=== PATIENT | female | born 1965 | race Caucasian/White ===

== ENCOUNTER 2017-08-08 16:14 | Emergency (ER) | payer OTHER ==
[2017-08-08 16:51] VITALS: O2SAT 97
[2017-08-08] MEDS ORDERED: Norflex 60 MG/2 ML IM ONE (16:51)
[2017-08-08] MEDS ORDERED: Norflex 60 MG/2 ML ONE (16:56)
--- NOTE | 2017-08-08 16:56 | ERPHSYRPT ---
- History of Present Illness Time Seen by Provider: 08/08/17 16:51 Source: patient Exam Limitations: no limitations Patient Subjective Stated Complaint: fell down two steps around noon today injuring back and left leg. Triage Nursing Assessment: ambulated to room per self. skin w/d, color normal, resp easy. tender down spine. abrasions noted to left knee and lower leg. leg warm, normal color, good pedal pulse. hx of back injury last may. Physician History: Patient states she tripped over a curb around noon today injuring her back, left knee and ankle. patient complain of paralumbar pain described as constant , localized and tightness. Patient denies any radiculopathy pain. Pains are worse with movement and weight bearing. Pain decreases with sitting still. Patient also with contusion to left knee and ankle. Patient able to move ankle/ knee without discomfort. Patient has taken Motrin for pain. Patient denies any loss of consciousness, headaches, dizziness, neck/chest/abdomen or any other extremities trauma/injuries Occurred: this afternoon (12 noon) Reason for Fall: slipped, tripped, fell from standing pos Injuries/Pain Location: back, lower extremity (L knee/ankle) Loss of Consciousness: no loss of consciousness (get a bed) Quality: throbbing Severity of Pain-Max: moderate Severity of Pain-Current: moderate Modifying Factors: Improves With: immobilization (improves), movement ( worsenslimited normal.) Associated Symptoms (Fall): back pain, extremity injury, muscle spasms, No abdominal pain, No confusion, No chest pain, No dizziness, No headache, No lightheadedness, No nausea, No neck pain, No trouble walking, No vision changes Allergies/Adverse Reactions: codeine Allergy (Verified 08/08/17 16:32) hydrocodone Allergy (Verified 08/08/17 16:32) tramadol Allergy (Verified 08/08/17 16:32) Home Medications: Butalb/Acetaminophen/Caffeine [Sasisy-Fyxuspzw-Yozw 50-500-40] 1 each PO BID [History] Cyclobenzaprine HCl 10 mg [Cyclobenzaprine 10 MG] 10 mg PO BID 08/08/17 [ History] Ibuprofen 800 mg PO BID 08/08/17 [History] Levothyroxine Sodium [Synthroid] 88 mcg PO DAILY 08/08/17 [History] Naproxen 375 mg PO BID 08/08/17 [History] Sertraline HCl 50 mg PO DAILY 08/08/17 [History] Hx Tetanus, Diphtheria Vaccination/Date Given: Yes (2017) Hx Influenza Vaccination/Date Given: No Hx Pneumococcal Vaccination/Date Given: No - Review of Systems Constitutional: No Fever, No Chills Eyes: No Symptoms Ears, Nose, & Throat: No Symptoms Respiratory: No Symptoms, No Cough, No Dyspnea Cardiac: No Symptoms, No Chest Pain, No Edema, No Syncope Abdominal/Gastrointestinal: No Symptoms, No Abdominal Pain, No Nausea, No Vomiting, No Diarrhea Genitourinary Symptoms: No Symptoms, No Dysuria Musculoskeletal: Back Pain, Joint Pain (L knee/ankle), No Neck Pain Skin: Other (Contusion to L knee/ankle are completely clear diomedes will be good), No Rash Neurological: No Dizziness, No Focal Weakness, No Sensory Changes Psychological: No Symptoms Endocrine: No Symptoms Hematologic/Lymphatic: No Symptoms (she will traumatic) Immunological/Allergic: No Symptoms All Other Systems: Reviewed and Negative - Past Medical History Pertinent Past Medical History: Yes ENT History: Cataracts Endocrine Medical History: Hypothyroidism Psycho-Social History: Depression Female Reproductive Disorders: Cervical Cancer Other Medical History: 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 - Past Surgical History Past Surgical History: Yes Gastrointestinal: Appendectomy, Cholecystectomy Musculoskeletal: Orthopedic Surgery Female Surgical History: Tubal Ligation Other Surgical History: right hand - Social History Smoking Status: Never smoker Exposure to second hand smoke: No Drug Use: none Patient Lives Alone: No - Nursing Vital Signs Nursing Vital Signs: Initial Vital Signs Temperature 97.7 F 08/08/17 16:20 Pulse Rate 91 H 08/08/17 16:20 Respiratory Rate 16 08/08/17 16:20 Blood Pressure 129/87 08/08/17 16:20 O2 Sat by Pulse Oximetry 97 08/08/17 16:20 Pain Scale Pain Intensity 10 EKG - [place] Coma Score Best Eye Response (Brett): (4) open spontaneously Best Verbal Response (Brett): (5) oriented Best Motor Response (Brett): (6) obeys commands [place] Total: 15 - Physical Exam General Appearance: no apparent distress, alert Head Injury: no evidence of injury Eye Exam: PERRL/EOMI, No eyes nml inspection ENT Exam: airway nml, No evidence of ENT injury, No dental injury Neck Exam: supple, trachea midline, full range of motion, normal alignment, normal inspection, No tenderness Respiratory/Chest Exam: normal breath sounds, No chest tenderness, No respiratory distress, No crepitus Cardiovascular Exam: normal heart sounds, regular rate/rhythm Gastrointestinal Exam: soft, No tenderness, No distention, No guarding, No ecchymosis Back Exam: normal inspection, vertebral tenderness (paralumbar tenderness/ tightness), decreased range of motion Extremity Exam: normal range of motion, pelvis stable, evidence of injury ( contusion to left knee and medial malleolus of left ankle), No deformities, No pain with movement, No pulse deficit, No pedal edema, No sensory deficit Peripheral Pulses: dorsalis-pedis (R): 2+, dorsalis-pedis (L): 2+ Neurologic Exam: alert, oriented x 3, cooperative, tentmaker II-XII nml as tested, normal mood/affect, sensation nml, No motor deficits Skin Exam: normal color, warm, dry SpO2 Interpretation: normal SpO2: 97 Oxygen Delivery: Room Air - Course Nursing assessment & vital signs reviewed: Yes - Radiology Exams L-Spine X-ray Interpretation: Interpreted by me, No Fracture (DJD) Ordered Tests: Active Orders 24 hr Category Date Time Status LUMBAR LIMITED (2 OR 3 VIEWS) Stat Exams 08/08/17 16:50 Taken Medication Summary Discontinued Medications Generic Name Dose Route Start Last Admin Trade Name Bobq PRN Reason Stop Dose Admin Orphenadrine Citrate 60 mg 08/08/17 16:51 08/08/17 17:01 Norflex 60 Mg/2 Ml IM 08/08/17 16:52 60 mg STAT ONE Administration Orphenadrine Citrate Confirm 08/08/17 16:56 Norflex 60 Mg/2 Ml Administered 08/08/17 16:57 Dose 60 mg .ROUTE .STK-MED ONE - Progress Progress: improved Progress Note: 08/08/17 16:59 we'll get x-rays of lumbar to rule out any injuries, along with giving patient' s Norflex 60 mg IM for discomfort Counseled pt/family regarding: diagnosis, rad results - Departure Time of Disposition: 17:47 Departure Disposition: Home Clinical Impression: Back strain Condition: Stable Critical Care Time: No Instructions: Preventing Falls, Lumbar Muscle Strain (DC) Additional Instructions: RX: Flexeril Ice to any sore areas along with Motrin 800mg every 8 hours with food for pain/ swelling Return for worse pain, numbness, tingling, weakness or any problems Prescriptions: Cyclobenzaprine HCl [Flexeril] 10 mg PO BID #20 tablet
[2017-08-08 18:09] VITALS: BP 107/74; PULSE 70
--- NOTE | 2017-08-09 08:57 | XRAY ---
Indication: Pain following fall. Comparison: None 3 views of the lumbar spine demonstrates 5 lumbar vertebral segments in normal alignment with minimal L3-L4 endplate spurring and minimal L5-S1 disc space narrowing with mild bilateral degenerative facet arthropathy. Cholecystectomy clips and minimal aortic calcifications. No other bony, articular, or soft tissue abnormalities.
== END 2017-08-08 18:12 | disposition home or self-care (01) ==
LOC: ED 16:14
DX: S39.012A Strain of muscle, fascia and tendon of lower back, initial encounter (principal); S80.02XA Contusion of left knee, initial encounter; S90.02XA Contusion of left ankle, initial encounter; W01.0XXA Fall on same level from slipping, tripping and stumbling without subsequent striking against object, initial encounter; Z79.899 Other long term (current) drug therapy
CPT/HCPCS: 72100; 96372; 99284; J2360

== ENCOUNTER 2018-03-08 09:58 | Emergency (ER) | payer OTHER ==
[2018-03-08] MEDS ORDERED: Zofran 4 MG/2 ML VIAL IV ONE (10:32)
[2018-03-08] MEDS ORDERED: MORPHINE SULFATE 4 MG INJ IV ONE ×2 (10:32→12:57)
[2018-03-08] MEDS ORDERED: Zofran 4 MG/2 ML VIAL ONE (10:36)
[2018-03-08] MEDS ORDERED: MORPHINE SULFATE 4 MG INJ ONE ×2 (10:36→12:59)
--- NOTE | 2018-03-08 10:38 | ERPHSYRPT ---
- History of Present Illness Time Seen by Provider: 03/08/18 10:29 Source: patient Exam Limitations: no limitations Patient Subjective Stated Complaint: pain in right hip/buttock that radiates down right leg Triage Nursing Assessment: Pt brought in by EMS due to pain in the right leg that has progressively gotten worse over 3 days, the pain begins in her right hip/buttock area and radiates to her feet, has stage 4 cervical cancer that has gone to her abdomen area and the lymph nodes in her chest, finished last chemo treatment yesterday, vitals wnl, pulses normal, lungs clear, power port in left chest, reports that she is unable to put any weight on the leg Physician History: 52-year-old white female with history of cervical cancer with metastasis to lymph nodes in the chest and abdomen. Arrives with complaint of pain in her right low back lumbar area severe radiating to her right lower leg symptoms for 3 days. No new injury. Patient apparently is on morphine IR 15 mg orally without relief Patient without urinary symptoms. Past medical history includes hypothyroidism, depression, cervical cancer with metastases to the lymph nodes and chest Past surgical history includes appendectomy, cholecystectomy, orthopedic surgery , tubal ligation, right hand surgery Timing/Duration: day(s) (3 days) Severity: moderate Modifying Factors: Improves With: movement Associated Symptoms: No nausea, No vomiting, No abdominal pain, No shortness of breath, No heartburn, No diaphoresis, No cough, No chills, No chest pain, No fever, No headaches, No loss of appetite, No malaise, No rash, No syncope, No seizure, No weakness Allergies/Adverse Reactions: codeine Allergy (Verified 08/08/17 16:32) hydrocodone Allergy (Verified 08/08/17 16:32) tramadol Allergy (Verified 08/08/17 16:32) Home Medications: Levothyroxine Sodium [Synthroid] 88 mcg PO DAILY 08/08/17 [History] Naproxen 375 mg PO BID 08/08/17 [History] Cephalexin Mh 500 mg [Keflex 500 mg] 500 mg PO Q8H 03/08/18 [History] Gabapentin 100 mg PO Q8H 03/08/18 [History] Morphine Sulfate 15 mg PO Q6H PRN 03/08/18 [History] Ondansetron HCl 4 mg PO Q8H 03/08/18 [History] Prochlorperazine Maleate 10 mg [Compazine 10 mg] 10 mg PO Q6H PRN 03/08/18 [ History] Promethazine HCl 25 mg [Phenergan 25 mg] 12.5 mg PO Q6H PRN 03/08/18 [ History] Hx Tetanus, Diphtheria Vaccination/Date Given: Yes (2018) Hx Influenza Vaccination/Date Given: No Hx Pneumococcal Vaccination/Date Given: No - Review of Systems Constitutional: No Fever, No Chills Eyes: No Symptoms Ears, Nose, & Throat: No Symptoms Respiratory: No Cough, No Dyspnea Cardiac: No Chest Pain, No Edema, No Syncope Abdominal/Gastrointestinal: No Abdominal Pain, No Nausea, No Vomiting, No Diarrhea Genitourinary Symptoms: No Dysuria Musculoskeletal: Back Pain Skin: No Rash Neurological: No Dizziness, No Focal Weakness, No Sensory Changes Psychological: No Symptoms Endocrine: No Symptoms All Other Systems: Reviewed and Negative - Past Medical History Pertinent Past Medical History: Yes ENT History: Cataracts Endocrine Medical History: Hypothyroidism Psycho-Social History: Depression Female Reproductive Disorders: Cervical Cancer Other Medical History: 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 and now towards the stomach - Past Surgical History Past Surgical History: Yes Gastrointestinal: Appendectomy, Cholecystectomy Musculoskeletal: Orthopedic Surgery Female Surgical History: Tubal Ligation Other Surgical History: right hand - Social History Smoking Status: Former smoker Exposure to second hand smoke: No Drug Use: marijuana Patient Lives Alone: No - Female History Hx Now: No - Nursing Vital Signs Nursing Vital Signs: Initial Vital Signs Temperature 98.1 F 03/08/18 10:00 Pulse Rate 95 H 03/08/18 10:00 Blood Pressure 99/62 03/08/18 10:00 O2 Sat by Pulse Oximetry 100 03/08/18 10:00 Pain Scale Pain Intensity 6 - Physical Exam SpO2: 100 - Course Nursing assessment & vital signs reviewed: Yes - CT Exams Abdomen/Pelvis CT Interpretation: Tele-radiologist Report (CT abdomen and pelvis: Impression 1. 50% compression fracture of L5 which appears acute or subacute. 2. 9 mm posterior displacement on L5 on fragments of the spinal canal with severe central spinal stenosis and bilateral lateral recess stenosis. 3. Borderline to mild bilateralhydronephrosis which could be secondary to neurogenic bladder versus reflux.) Ordered Tests: Active Orders 24 hr Category Date Time Status IV Insertion STAT Care 03/08/18 10:32 Active ABDOMEN AND PELVIS W/0 CONTRAS [CT] Stat Exams 03/08/18 10:33 Taken CULTURE,URINE Stat Lab 03/08/18 11:35 Received UA W/RFX UR CULTURE Stat Lab 03/08/18 11:35 Completed Medication Summary Discontinued Medications Generic Name Dose Route Start Last Admin Trade Name Neisha PRN Reason Stop Dose Admin Morphine Sulfate 4 mg 03/08/18 10:32 03/08/18 10:38 Morphine Sulfate 4 Mg Inj IV 03/08/18 10:33 4 mg STAT ONE Administration Morphine Sulfate Confirm 03/08/18 10:36 Morphine Sulfate 4 Mg Inj Administered 03/08/18 10:37 Dose 4 mg .ROUTE .STK-MED ONE Ondansetron HCl 4 mg 03/08/18 10:32 03/08/18 10:39 Zofran 4 Mg/2 Ml Vial IV 03/08/18 10:33 4 mg STAT ONE Administration Ondansetron HCl Confirm 03/08/18 10:36 Zofran 4 Mg/2 Ml Vial Administered 03/08/18 10:37 Dose 4 mg .ROUTE .STK-MED ONE Lab/Rad Data: Laboratory Results 03/08/18 Range/Units 11:35 Urine Color RED (YELLOW) Urine Appearance SLIGHTLY CLOUDY (CLEAR) Urine pH 6.0 (5-6) Ur Specific [place] 1.011 (1.005-1.025) Urine Protein 100 (Negative) Urine Ketones NEGATIVE (NEGATIVE) Urine Blood LARGE (0-5) Timbo/ul Urine Nitrite NEGATIVE (NEGATIVE) Urine Bilirubin NEGATIVE (NEGATIVE) Urine Urobilinogen 4 (0-1) mg/dL Ur Leukocyte Esterase MODERATE (NEGATIVE) Urine WBC (Auto) 16-25 (0-5) /HPF Urine RBC (Auto) >101 (0-2) /HPF U Epithel Cells (Auto) RARE (FEW) /HPF Urine Bacteria (Auto) RARE (NEGATIVE) /HPF Unidentified Crystals 25-50 (NEGATIVE) /HPF Urine Culture Reflexed YES (NO) Urine Glucose 50 (NEGATIVE) mg/dL - Progress Progress: improved Progress Note: 03/08/18 12:52 Patient is noted to have compression fracture of L5. Patient also with spinal stenosis. Case discussed with Dr. Villatoro at [facility]. He has accepted patient for transfer. Patient was given morphine for pain. - Departure Time of Disposition: 12:54 Departure Disposition: Transfer ([facility]) Clinical Impression: Back pain Qualifiers: Back pain location: low back pain Chronicity: acute Back pain laterality: right Sciatica presence: with sciatica Sciatica laterality: sciatica of right side Qualified Code(s): M54.41 - Lumbago with sciatica, right side Compression fracture of L5 vertebra Qualifiers: Encounter type: initial encounter Fracture type: closed Qualified Code(s): S32.050A - Wedge compression fracture of fifth lumbar vertebra, initial encounter for closed fracture Spinal stenosis Qualifiers: Spinal region: lumbar Neurogenic claudication status: unspecified Qualified Code(s): M48.061 - Spinal stenosis, lumbar region without neurogenic claudication Condition: Fair Critical Care Time: No Referrals: JOSEPH GONZALEZ MD [Primary Care Provider] -
[2018-03-08 12:26] LABS: Appearance SLIGHTLY CLOUDY (CLEAR); Bacteria RARE /HPF (NEGATIVE); Bilirubin NEGATIVE (NEGATIVE); Blood LARGE Ery/ul (0-5); Glucose 50 mg/dL (NEGATIVE); Ketones NEGATIVE (NEGATIVE); Leukocyte Esterase MODERATE (NEGATIVE); Nitrite NEGATIVE (NEGATIVE); Protein,Urine Dip 100 (Negative); Specific Gravity 1.011 (1.005-1.025); Urobilinogen 4 mg/dL (0-1)
[2018-03-08 12:27] LABS: Crystals Unidentified 25-50 /HPF (NEGATIVE); RBC >101 /HPF (0-2)
[2018-03-08 12:28] LABS: Epithelial Cells RARE /HPF (FEW)
[2018-03-08 12:43] VITALS: BP 120/80; PULSE 98
[2018-03-08 12:55] VITALS: O2SAT 100
--- NOTE | 2018-03-08 19:41 | XRAY ---
Indication: Right abdomen/back pain radiating to right hip. Multiple contiguous axial images obtained through the abdomen and pelvis without contrast as ordered. Comparison: June 10, 2012. Lung bases are clear. Heart is not enlarged. Noncontrasted stomach and bowel loops appear nonobstructed. Patient reports previous appendectomy and cholecystectomy. No free fluid/air. Spleen is enlarged measuring 13.5 cm in greatest axial dimension. Remaining liver, pancreas, spleen, adrenal glands, kidneys, ureters, bladder, and uterus appear unremarkable for noncontrast exam. Mild aortoiliac calcifications without AAA. Osseous structures intact with remote L5 compression fracture demonstrating 50-70% vertebral height loss. Posterior fracture encroaches on the spinal canal. No ventral or inguinal hernias. Impression: 1. Remote-appearing L5 compression fracture. Outpatient MRI may yield further information. 2. Incidental splenomegaly. 3. Remaining CT abdomen/pelvis without contrast exam is negative. Comment: Preliminary interpretation was made by C. No critical discrepancy. CTDI 23.26
== END 2018-03-08 13:48 | disposition short-term general hospital (02) ==
LOC: ED 09:58
DX: M54.41 Lumbago with sciatica, right side (principal); S32.050A Wedge compression fracture of fifth lumbar vertebra, initial encounter for closed fracture; M25.551 Pain in right hip; M48.00 Spinal stenosis, site unspecified; E03.9 Hypothyroidism, unspecified; F41.9 Anxiety disorder, unspecified; Z85.41 Personal history of malignant neoplasm of cervix uteri; F12.10 Cannabis abuse, uncomplicated
CPT/HCPCS: 36000; 74176; 81001; 87086; 96374; 96375; 96376; 99285; J2270; J2405

== ENCOUNTER 2018-04-18 17:09 | Emergency (ER) | payer OTHER ==
[2018-04-18] MEDS ORDERED: PROTONIX 40 MG IV IV ONE ×2 (17:26→17:36)
[2018-04-18] MEDS ORDERED: Sodium Chloride 0.9% 1000 ML 1,000 ML IV STA ×2 (17:26→19:18)
[2018-04-18] MEDS ORDERED: Sodium Chloride 0.9% 1000 ML 1,000 ML ONE ×2 (17:36→19:15)
[2018-04-18] MEDS ORDERED: Sodium Chloride 0.9% 500 ML 500 ML IV ONE (17:36)
[2018-04-18] MEDS ORDERED: PROTONIX 40 MG IV*** 80 MG in Sodium Chloride 0.9% 500 ML 500 ML IV SCH (17:45)
[2018-04-18 19:09] LABS: Hematocrit 29.8 % (35-47); Hemoglobin 9.5 gm/dl (12.0-16.0); Mean Cell Volume 102.1 fl (78-100); Mean Corpuscular Hemoglobin 32.5 pg (26-32); Mean Corpuscular Hgb Concent. 31.9 g/dl (32-36); Platelet Count 64 K/mm3 (150-450); Red Blood Count 2.92 M/mm3 (4.1-5.4); Red Cell Distribution Width 18.9 % (11.5-14.0); White Blood Count 9.5 K/mm3 (4.0-10.5)
[2018-04-18 19:14] LABS: ANION GAP 19.4 MEQ/L (5-15); BILIRUBIN,TOTAL 4.2 mg/dL (0.2-1.3); Calcium 7.2 mg/dL (8.4-10.2); Creatinine 1 2.74 mg/dL (0.52-1.04)
[2018-04-18 19:21] LABS: Potassium 5.3 mmol/L (3.5-5.1)
[2018-04-18] MEDS ORDERED: Zofran 4 MG/2 ML VIAL IV ONE (19:28)
[2018-04-18] MEDS ORDERED: Zofran 4 MG/2 ML VIAL ONE (19:30)
[2018-04-18 19:36] VITALS: PULSE 112
--- NOTE | 2018-04-18 19:39 | ERPHSYRPT ---
- History of Present Illness Historian: patient Exam Limitations: no limitations Patient Subjective Stated Complaint: states over the past two days has gotten weaker and more short of breath. having diarrhea today. four liquid stools. four years ago dx with cervical cancer. released on saturday from cancer doctor after being told cancer is in remission. Triage Nursing Assessment: to room per ems. patient very sallow, skin cold. resp slightly labored. patient pulled nasal cannula off. sats 99% room air. patient denies any pain except in upper left leg. states she has leg cramps. assisted to commode. had small amt black stool. Physician History: Pt is a 52 y/o female that presented to the ED with GI bleed. Pt has a h/o cervical CA, and she was now given clear bill of health and was told she is in remission. Pt is feeling very weak, and tired. She is having diarrhea with melena. Nausea. No vomiting. No F/C/S. Timing/Duration: today Activities at Onset: none Modifying Factors: Improves With: nothing Associated Symptoms: diarrhea, nausea (Melena) Allergies/Adverse Reactions: codeine Allergy (Verified 04/18/18 17:33) hydrocodone Allergy (Verified 04/18/18 17:33) tramadol Allergy (Verified 04/18/18 17:33) morphine Adverse Reaction (Verified 04/18/18 17:34) Home Medications: Levothyroxine Sodium [Synthroid] 88 mcg PO DAILY 08/08/17 [History] Naproxen 375 mg PO BID 08/08/17 [History] Gabapentin 100 mg PO Q8H 03/08/18 [History] Ondansetron HCl 4 mg PO Q8H 03/08/18 [History] Prochlorperazine Maleate 10 mg [Compazine 10 mg] 10 mg PO Q6H PRN 03/08/18 [ History] Promethazine HCl 25 mg [Phenergan 25 mg] 12.5 mg PO DAILY 03/08/18 [ History] Iron,Carbonyl/Ascorbic Acid [Fe C Tablet] 1 each PO DAILY 04/18/18 [History] Hx Tetanus, Diphtheria Vaccination/Date Given: No Hx Influenza Vaccination/Date Given: No Hx Pneumococcal Vaccination/Date Given: No - Review of Systems Constitutional: Fatigue, Lethargy, Malaise Respiratory: No Cough, No Dyspnea Cardiac: No Chest Pain, No Edema, No Syncope Abdominal/Gastrointestinal: Nausea, Diarrhea (with stephania), Hematochezia, Melena Musculoskeletal: No Back Pain, No Neck Pain - Past Medical History Pertinent Past Medical History: Yes ENT History: Cataracts Endocrine Medical History: Hypothyroidism Psycho-Social History: Depression Female Reproductive Disorders: Cervical Cancer Other Medical History: 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 and now towards the stomach - Past Surgical History Past Surgical History: Yes Gastrointestinal: Appendectomy, Cholecystectomy Musculoskeletal: Orthopedic Surgery Female Surgical History: Tubal Ligation Other Surgical History: right hand - Social History Smoking Status: Former smoker Exposure to second hand smoke: Yes Drug Use: none Patient Lives Alone: No - Female History Hx Now: No - Nursing Vital Signs Nursing Vital Signs: Initial Vital Signs Temperature 97.2 F 04/18/18 17:21 Pulse Rate 126 H 04/18/18 17:21 Respiratory Rate 24 04/18/18 17:21 Blood Pressure 91/54 04/18/18 17:21 O2 Sat by Pulse Oximetry 100 04/18/18 17:21 Pain Scale Pain Intensity 5 - Physical Exam General Appearance: severe distress Eye Exam: PERRL/EOMI, eyes nml inspection, scleral icterus Ears, Nose, Throat Exam: normal ENT inspection, pharynx normal, moist mucous membranes Neck Exam: normal inspection, non-tender, supple, full range of motion Respiratory Exam: normal breath sounds, lungs clear, No respiratory distress Cardiovascular Exam: regular rate/rhythm, normal heart sounds, tachycardia Gastrointestinal/Abdomen Exam: soft, No tenderness, No mass Extremity Exam: normal inspection, normal range of motion, pelvis stable Neurologic Exam: alert, oriented x 3, cooperative, normal mood/affect, nml cerebellar function, sensation nml, No motor deficits SpO2: 99 - Course Nursing assessment & vital signs reviewed: Yes Ordered Tests: Active Orders 24 hr Category Date Time Status IV Insertion STAT Care 04/18/18 17:26 Active BLOOD CULTURE Stat Lab 04/18/18 18:20 Received CBC W DIFF Stat Lab 04/18/18 19:00 Completed CMP Stat Lab 04/18/18 18:20 Completed Manual Differential NC Stat Lab 04/18/18 19:00 Completed Occult Blood, Other Screening Stat Lab 04/18/18 Completed UA W/RFX UR CULTURE Stat Lab 04/18/18 17:28 Uncollected Medication Summary Generic Name Dose Route Start Last Admin Trade Name Neisha PRN Reason Stop Dose Admin Pantoprazole Sodium 80 mg/ 500 mls @ 50 mls/hr 04/18/18 17:45 04/18/18 17:50 Sodium Chloride IV 05/18/18 17:44 50 ml/hr .Q10H TIMMY 50 mls/hr Administration Sodium Chloride 1,000 mls @ 999 mls/hr 04/18/18 19:18 04/18/18 19:19 Sodium Chloride 0.9% 1000 Ml IV 04/18/18 20:18 999 mls/hr .Q1H1M STA Administration Discontinued Medications Generic Name Dose Route Start Last Admin Trade Name Neisha PRN Reason Stop Dose Admin Sodium Chloride 1,000 mls @ 999 mls/hr 04/18/18 17:26 04/18/18 18:50 Sodium Chloride 0.9% 1000 Ml IV 04/18/18 18:26 Infused .Q1H1M STA Infusion Sodium Chloride Confirm 04/18/18 17:36 Sodium Chloride 0.9% 1000 Ml Administered 04/18/18 17:37 Dose 1,000 mls @ ud .ROUTE .STK-MED ONE Sodium Chloride Confirm 04/18/18 17:36 Sodium Chloride 0.9% 500 Ml Administered 04/18/18 17:37 Dose 500 mls @ ud IV .STK-MED ONE Sodium Chloride Confirm 04/18/18 19:15 Sodium Chloride 0.9% 1000 Ml Administered 04/18/18 19:16 Dose 1,000 mls @ ud .ROUTE .STK-MED ONE Ondansetron HCl 4 mg 04/18/18 19:28 04/18/18 19:33 Zofran 4 Mg/2 Ml Vial IV 04/18/18 19:29 4 mg STAT ONE Administration Ondansetron HCl Confirm 04/18/18 19:30 Zofran 4 Mg/2 Ml Vial Administered 04/18/18 19:31 Dose 4 mg .ROUTE .STK-MED ONE Pantoprazole Sodium 40 mg 04/18/18 17:26 04/18/18 17:49 Protonix 40 Mg Iv IV 04/18/18 17:27 40 mg STAT ONE Administration Pantoprazole Sodium Confirm 04/18/18 17:36 Protonix 40 Mg Iv Administered 04/18/18 17:37 Dose 120 mg IV .STK-MED ONE Lab/Rad Data: Laboratory Result Diagrams 04/18/18 19:00 04/18/18 18:20 Laboratory Results 04/18/18 04/18/18 04/18/18 Range/Units Unknown 19:00 18:20 WBC 9.5 (4.0-10.5) K/mm3 RBC 2.92 L (4.1-5.4) M/mm3 Hgb 9.5 L (12.0-16.0) gm/dl Hct 29.8 L (35-47) % MCV 102.1 H (78-100) fl MCH 32.5 H (26-32) pg MCHC 31.9 L (32-36) g/dl RDW 18.9 H (11.5-14.0) % Plt Count 64 L (150-450) K/mm3 Absolute Granulocytes 8.60 H (1.4-6.9) Sodium 133 L (137-145) mmol/L Potassium 5.3 H (3.5-5.1) mmol/L Chloride 109 H (98-107) mmol/L Carbon Dioxide 10 L* (22-30) mmol/L Anion Gap 19.4 H (5-15) MEQ/L BUN 83 H (7-17) mg/dL Creatinine 2.74 H (0.52-1.04) mg/dL Estimated GFR 19.2 ML/MIN Glucose 130 H (74-106) mg/dL Calcium 7.2 L (8.4-10.2) mg/dL Total Bilirubin 4.20 H (0.2-1.3) mg/dL AST 67 H (14-36) U/L ALT 33 (0-35) U/L Alkaline Phosphatase 217 H (38-126) U/L Serum Total Protein 5.0 L (6.3-8.2) g/dL Albumin 2.0 L (3.5-5.0) g/dL Stool Occult Blood POSITIVE A (Negative) - Progress Progress: unchanged Progress Note: 04/18/18 19:39 Pt presented with GI bleed. She did get 2 lit bolus of IVF, Protonix bolus and a drip. She is hypotensive and in PIERO, with elevated t bili. [facility] emerg[facility]. DR Macedo is accepting. - Departure Time of Disposition: 19:41 Departure Disposition: Transfer Clinical Impression: GI bleed Condition: Critical Critical Care Time: No Referrals: JOSEPH GONZALEZ MD [Primary Care Provider] - Additional Instructions: [facility] go to [facility]. Dr Alegria is accepting,
[2018-04-18 19:54] VITALS: BP 72/50; O2SAT 100
[2018-04-18 21:18] LABS: ABO TYPING A; Antibody Screen NEGATIVE (NEGATIVE); RH TYPING POSITIVE
[2018-04-18 22:17] LABS: Lymphocytes 6 % (24-44); Monocyte 5 % (0.0-12.0); Neutrophils 89 % (36.0-66.0); Total Cells Counted 100
[2018-04-18 22:18] LABS: Burr Cells 3+; Platelet Estimate DECREASED (NORMAL)
[2018-04-18 22:19] LABS: Toxic Granulation 3+
== END 2018-04-18 19:52 | disposition short-term general hospital (02) ==
LOC: ED 17:09
DX: K92.2 Gastrointestinal hemorrhage, unspecified (principal); E03.9 Hypothyroidism, unspecified; Z85.41 Personal history of malignant neoplasm of cervix uteri; Z79.899 Other long term (current) drug therapy
CPT/HCPCS: 36000; 36415; 80053; 82272; 85025; 86850; 86900; 86901; 87040; 87077; 87186; 96360; 96361; 96365; 96374; 96375; 99285; J2405